=== PATIENT | female | born 1980 | race Two or more races ===

== ENCOUNTER 2018-06-04 18:40 | Emergency (ER) | payer BC ==
[2018-06-04] MEDS ORDERED: ONDANSETRON 4 MG TAB.RAPDIS PO ONE (19:39)
--- NOTE | 2018-06-04 19:41 | ER Document Report ---
ED Medical Screen (RME) - General Chief Complaint: Abdominal Pain Stated Complaint: SYNCOPE Time Seen by Provider: 06/04/18 19:38 Mode of Arrival: Wheelchair Information source: Patient Notes: 37-year-old female presents to ED for complaint of severe abdominal pain nausea vomiting. Patient does not speak Azeri but her does. He states that they were driving from [facility] to this area due to a ball tournament for their daughter. states that patient stated she had to go to the bathroom so he stopped at a rest door up and she went to the bathroom had multiple little pieces hard pieces of stool. States about 15 minutes later she started vomiting and about 3 minutes later she passed out. He states that her eyes were rolled back and she did not speak to them for about a minute. She states when she woke up she pointed at the bottle of water and when he handed it to her she attempted all of her head when we asked her why she got the water on her head she states she felt hot all over and she was up in the water on her for that reason. Patient is tells that she had her last menstrual period on May 20 and she has an IUD. denies any past medical history. Patient is stating he has abdominal pain across the lower abdomen. Patient is alert oriented respirations regular and unlabored. I have greeted and performed a rapid initial assessment of this patient. A comprehensive ED assessment and evaluation of the patient, analysis of test results and completion of medical decision making process will be conducted by an additional ED providers. TRAVEL OUTSIDE OF THE [place] IN LAST 30 DAYS: No - Related Data Allergies/Adverse Reactions: No Known Allergies Allergy (Verified 06/04/18 18:45) Physical Exam - Vital signs Vitals: Temp Pulse Resp BP Pulse Ox 98.1 F 95 18 103/61 100 06/04/18 19:29 06/04/18 19:29 06/04/18 19:29 06/04/18 19:29 06/04/18 19:29 Course - Vital Signs Vital signs: Temp Pulse Resp BP Pulse Ox 98.1 F 95 18 103/61 100 06/04/18 19:29 06/04/18 19:29 06/04/18 19:29 06/04/18 19:29 06/04/18 19:29
--- NOTE | 2018-06-04 20:56 | RADIOLOGY REPORT (SQ) ---
EXAM DESCRIPTION: XR ABDOMEN SUPINE AND ERECT WITH CHEST (ABD ACUTE SERIES) COMPLETED DATE/TME: 06/04/2018 19:38 CLINICAL HISTORY: 37 years, Female, Severe abdominal pain after going to the bathroom. COMPARISON: EXAM DESCRIPTION: CLINICAL HISTORY: Severe abdominal pain after going to the bathroom. COMPARISON: None FINDINGS: Frontal view of the chest and supine and upright images of the abdomen were submitted. IUD is present in the pelvis. Cardiac silhouette is within normal limits. There is no focal parenchymal or pleural disease. There is no free air in the abdomen. There is no evidence of bowel obstruction. IMPRESSION: No acute abnormalities.
[2018-06-04 21:25] LABS: ABSOLUTE BASOPHILS # (AUTO) 0.1 10^3/uL (0.0-0.2); ABSOLUTE EOSINOPHILS # (AUTO) 0.2 10^3/uL (0.0-0.6); ABSOLUTE LYMPHOCYTES (AUTO) 1.2 10^3/uL (0.5-4.7); BASOPHILS % (AUTO) 0.4 % (0-2); HEMATOCRIT 43.6 % (36.0-47.0); LYMPHOCYTES % (AUTO) 7.1 % (13-45); MEAN CORPUSCULAR HEMOGLOBIN 31.8 pg (27.0-33.4); MEAN CORPUSCULAR HGB CONC 34.5 g/dL (32.0-36.0); MEAN CORPUSCULAR VOLUME 92 fl (80-97); MONOCYTES % (AUTO) 5.8 % (3-13); PLATELET COUNT 208 10^3/uL (150-450); RED BLOOD COUNT 4.73 10^6/uL (3.72-5.28); RED CELL DISTRIBUTION WIDTH 12.6 % (11.5-14.0); SEGMENTED NEUTROPHILS % (AUTO) 85.7 % (42-78); TOTAL CELLS COUNTED % (AUTO) 100 %; WHITE BLOOD COUNT 17.4 10^3/uL (4.0-10.5)
[2018-06-04 21:45] LABS: APPEARANCE,URINE CLOUDY; BILIRUBIN,URINE NEGATIVE (NEGATIVE); GLUCOSE, URINE NEGATIVE (NEGATIVE); KETONES,URINE NEGATIVE (NEGATIVE); LEUKOCYTE ESTERASE,URINE NEGATIVE (NEGATIVE); NITRITE,URINE NEGATIVE (NEGATIVE); PROTEIN,URINE NEGATIVE (NEGATIVE); URINE SPECIFIC GRAVITY 1.018; UROBILINOGEN,URINE NEGATIVE mg/dL (<2.0)
[2018-06-04 21:47] LABS: ALANINE AMINOTRANSFERASE 44 U/L (9-52); ALBUMIN 4.3 g/dL (3.5-5.0); ALKALINE PHOSPHATASE 107 U/L (38-126); ANION GAP 12 (5-19); ASPARTATE AMINO TRANSFERASE 30 U/L (14-36); BILIRUBIN,DIRECT 0.3 mg/dL (0.0-0.4); BILIRUBIN,TOTAL 0.8 mg/dL (0.2-1.3); BLOOD UREA NITROGEN 11 mg/dL (7-20); CALCIUM 9.7 mg/dL (8.4-10.2); CARBON DIOXIDE 24 mmol/L (22-30); CHLORIDE 104 mmol/L (98-107); GLUCOSE 118 mg/dL (75-110); SODIUM 140.1 mmol/L (137-145); TOTAL PROTEIN 7.6 g/dL (6.3-8.2)
[2018-06-04 21:50] LABS: COLOR,URINE YELLOW
[2018-06-04] MEDS ORDERED: ACETAMINOPHEN 325 MG TABLET PO ONE (22:42)
[2018-06-04 22:58] LABS: LIPASE 81.8 U/L (23-300)
--- NOTE | 2018-06-05 00:46 | RADIOLOGY REPORT (SQ) ---
EXAM DESCRIPTION: CT ABDOMEN PELVIS WITH IV CONTRAST COMPLETED DATE/TME: 06/04/2018 23:55 CLINICAL HISTORY: 37 years, Female, lower ab pain, leukocytosis COMPARISON: Plain films 06/04/2018 TECHNIQUE: [id number] Images stored on PACS. All CT scanners at this facility use dose modulation, iterative reconstruction, and/or weight based dosing when appropriate to reduce radiation dose to as low as reasonably achievable (ALARA). [facility]: Dose Right [facility]: CareDose [facility]: Dose Right [facility]: Teradose 4D [facility]: [employer] LIMITATIONS: None. FINDINGS: Lung bases are unremarkable. Osseous structures are grossly intact. The liver, spleen, adrenal glands, pancreas, kidneys are unremarkable. The gallbladder is present. No gross evidence for bowel obstruction. Normal appendix. IUD in place. No free air or free fluid. IMPRESSION: Negative for acute intra-abdominal/pelvic process. TECHNICAL DOCUMENTATION: Quality ID # [id number]: Final reports with documentation of one or more dose reduction techniques (e.g., Automated exposure control, adjustment of the mA and/or kV according to patient size, use of iterative reconstruction technique) copyright 2011 [employer]- All Rights Reserved
[2018-06-05] MEDS ORDERED: ONDANSETRON ODT 4 MG TAB (6 TAB/ER DISP) PO PRN (02:08)
--- NOTE | 2018-06-05 02:08 | ER Document Report ---
ED General - General Chief Complaint: Abdominal Pain Stated Complaint: SYNCOPE Time Seen by Provider: 06/04/18 19:38 Mode of Arrival: Wheelchair Notes: P3 patient is a 7-year-old female presents to ED for complaint of abdominal pain, nausea, vomiting, diarrhea as well as an episode of syncope. He states that they were driving from [facility] to this area due to a ball tournament for their daughter. states that patient stated she had to go to the bathroom so he stopped at a rest stop and she went to the bathroom had multiple little pieces hard pieces of stool. States about 15 minutes later she started vomiting and about 3 minutes later she passed out. He states that her eyes were rolled back and she did not speak to them for about a minute. Patient has no chronic medical problems. Denies history of abdominal surgeries. States that she overall feels much better now relative to the earlier today. She did not notice that anything seems improve or worsen her symptoms are present. She does regard them as being relatively acute in onset, severe in nature now having effectively mostly resolved. She did still complain of some mild, diffuse, cramping lower abdominal discomfort. The history and physical exam was obtained by the provider using Slovenian. A formal hospital plastic cablemaking machine operator was offered to the patient and any family at the bedside at the beginning of the encounter and was declined. TRAVEL OUTSIDE OF THE [place] IN LAST 30 DAYS: No - Related Data Allergies/Adverse Reactions: No Known Allergies Allergy (Verified 06/04/18 18:45) Past Medical History - General Information source: Patient - Social History Smoking Status: Never Smoker Frequency of alcohol use: None Drug Abuse: None Lives with: Spouse/Significant other Family History: Reviewed & Not Pertinent Patient has suicidal ideation: No Patient has homicidal ideation: No Renal/ Medical History: Denies: Hx Peritoneal Dialysis Review of Systems - Review of Systems Notes: Constitutional: Negative for fever. HENT: Negative for sore throat. Eyes: Negative for visual changes. Cardiovascular: Negative for chest pain. Positive for syncope Respiratory: Negative for shortness of breath. Gastrointestinal: Positive for abdominal pain, nausea, vomiting and diarrhea Genitourinary: Negative for dysuria. Musculoskeletal: Negative for back pain. Skin: Negative for rash. Neurological: Negative for headaches, weakness or numbness. 10 point ROS negative except as marked above and in HPI. Physical Exam - Vital signs Vitals: Temp Pulse Resp BP Pulse Ox 98.1 F 95 18 103/61 100 06/04/18 19:29 06/04/18 19:29 06/04/18 19:29 06/04/18 19:29 06/04/18 19:29 Interpretation: Normal Notes: PHYSICAL EXAMINATION: GENERAL: Well-appearing, well-nourished and in no acute distress. HEAD: Atraumatic, normocephalic. EYES: Pupils equal round and reactive to light, extraocular movements intact, sclera anicteric, conjunctiva are normal. ENT: nares patent, oropharynx clear without exudates. Moist mucous membranes. NECK: Normal range of motion, supple without lymphadenopathy LUNGS: Breath sounds clear to auscultation bilaterally and equal. No wheezes rales or rhonchi. HEART: Regular rate and rhythm without murmurs ABDOMEN: Soft, mild tenderness on palpation of the right lower quadrant and suprapubic abdomen, normoactive bowel sounds. No guarding, no rebound. No masses appreciated. EXTREMITIES: Normal range of motion, no pitting or edema. No cyanosis. NEUROLOGICAL: No focal neurological deficits. Moves all extremities spontaneously and on command. PSYCH: Normal mood, normal affect. SKIN: Warm, Dry, normal turgor, no rashes or lesions noted. Course - Re-evaluation Re-evalutation: 06/05/18 02:07 Presentation of syncope of unclear etiology. Although appears to be consistent vasovagal combined with hypovolemia as it did start after patient had multiple bowel movements and vomited on several occasions. Patient had some abdominal cramping at time of presentation which has now completely resolved. Labs did show nonspecific leukocytosis. Given that the patient did continue to have some lower abdominal discomfort a CT abdomen pelvis was obtained to definitively exclude an acute appendicitis and is noted to be normal. With patient normotensive, alert, without focal neurologic deficits at time of arrival. Denies syncope was during exertion. No preceding symptoms of palpitations, chest pain, or shortness of breath. Patient asymptomatic at time of arrival. EKG is without evidence of HCOM, right heart strain, ST changes to suggest ischemia, prolong QTc, delta wave, epsilon wave, or Brugada syndrome. Patient denies any family history of sudden cardiac , personal history of of structural heart disease. Patient denies any symptoms to suggest an acute PE, DC, TAD, SAH, seizure, or acute GI bleed as the etiology of their syncope today. On exam, no murmurs to suggest critical aortic stenosis as possible etiology. Based on overall clinical history, exam findings, vitals, and patients appearance, I feel it is safe for patient to be discharged home at this time with close outpatient follow-up and strict return precautions. Patient is in agreement with this plan, has verbalized indications for return to ED, and questions have been answered. - Vital Signs Vital signs: Temp Pulse Resp BP Pulse Ox 98.1 F 89 17 100/65 97 06/05/18 02:32 06/05/18 02:32 06/05/18 02:32 06/05/18 02:32 06/05/18 02:32 - Laboratory Result Diagrams: 06/04/18 21:00 06/04/18 21:00 Laboratory results interpreted by me: 06/04/18 06/04/18 21:00 21:00 WBC 17.4 H Seg Neutrophils % 85.7 H Lymphocytes % 7.1 L Absolute Neutrophils 15.0 H Creatinine 0.51 L Glucose 118 H - Diagnostic Test Radiology reviewed: Reports reviewed - EKG Interpretation by Me Additional EKG results interpreted by me: 06/05/18 04:34 Sinus rhythm, rate 90. No ST elevations or depressions. QTC 482. Discharge - Discharge Clinical Impression: Nausea vomiting and diarrhea Syncope Qualifiers: Syncope type: unspecified Qualified Code(s): R55 - Syncope and collapse Condition: Good Disposition: HOME, SELF-CARE Additional Instructions: You were seen today after an episode of passing out. Your EKG here is normal. At this time, we do not feel that your episode of passing out was from any life- threatening cause. Please drink plenty of fluids over the next several days. Return to emergency department if you have any further episodes of syncope, headache, weakness, numbness, chest pain, or shortness of breath. Please follow up closely with your primary care physician. Your symptoms are likely due to a viral illness and should resolve in the next several days. You can take [id number] loperamide also known as Imodium as needed for diarrhea per box instructions. Continue to stay hydrated with plenty of solution such as Gatorade or Pedialyte. You are being prescribed Zofran to take as needed for nausea and vomiting. Please return if you develop severe abdominal pain, pass out, become unable to tolerate any oral fluids for 12 more hours, or any other symptoms that are concerning to you.
[2018-06-05 02:34] VITALS: BP 100/65
--- NOTE | 2018-06-05 09:50 | EKG REPORT ---
SEVERITY:- ABNORMAL ECG - SINUS RHYTHM NONSPECIFIC T ABNORMALITIES, ANTERIOR LEADS : Confirmed by: Sylvia Douglas MD 05-Jun-2018 09:49:39
== END 2018-06-05 02:32 | disposition home or self-care (01) ==
LOC: ER 06-05 02:29
DX: R11.2 Nausea with vomiting, unspecified (principal); R19.7 Diarrhea, unspecified; R55 Syncope and collapse; R10.30 Lower abdominal pain, unspecified; R10.813 Right lower quadrant abdominal tenderness; D72.829 Elevated white blood cell count, unspecified
CPT/HCPCS: 93005; 99284; 36415; 83690; 84703; 85025; 80053; 81001; 74022; 74177; 93010; S0119